=== PATIENT | male | born 1950 ===

== ENCOUNTER 2020-12-09 09:24 | Outpatient (CLI) | payer MEDICARE, OTHER, SELFPAY ==
[2020-12-09 10:11] LABS: Anion Gap 8 mmol/L (8-16); Blood Urea Nitrogen 18 mg/dL (9-20); Carbon Dioxide 35 mmol/L (22-30); Chloride 97 mmol/L (98-107); Estimated Glomerular Filt Rate 60; Glucose 188 mg/dL (75-110); Potassium 3.9 mmol/L (3.4-5.0); Sodium 140 mmol/L (137-145)
== END 2020-12-09 09:25 | disposition home or self-care (01) ==
PROVIDERS: PCP Internal Medicine Endocrinology, Diabetes & Metabolism; Visit Provider Internal Medicine Endocrinology, Diabetes & Metabolism
DX: E11.65 Type 2 diabetes mellitus with hyperglycemia (principal)
CPT/HCPCS: 36415; 80048; 82607

== ENCOUNTER 2022-05-26 07:38 | Emergency (ER) | payer MEDICARE, OTHER, SELFPAY ==
--- NOTE | ~2022-05-26 | CT_ITS ---
EXAMINATION: CT cervical spine wo con DATE: 05/26/2022 08:14 INDICATION: Altered level of consciousness TECHNIQUE: Computed tomography (CT) of the cervical spine was performed without intravenous contrast. Automated exposure control and iterative reconstruction technique were employed. Exam dose: 546.24 mGy-cm total exam DLP. COMPARISON: None FINDINGS: C1 and C2 are normally aligned and the odontoid process is intact. There is mild degenerative disease at C2-C3 and C3-4, moderately severe degenerative disease at C4-5 and severe degenerative disc disease at C5-6 and C6-7. There is slight anterolisthesis at C3-4, slight retrolisthesis at C4-5 and slight anterolisthesis at C7-T1. There is degenerative change at the apophyseal joints throughout the cervical spine is mild to modera te uncovertebral joints throughout the cervical spine No fracture or dislocation or locked facet or prevertebral soft tissue swelling of the cervical spine . There is mild anterior wedging of T1, T2 and T3 which may be due to mild old compression fractures. IMPRESSION: Cervical spondylosis; no cervical spine fracture is detected Probable chronic mild anterior wedge compression fractures of T1, T2 and T3 Reviewed, dictated and finalized at [facility]. Reviewed, dictated and finalized at [facility].
--- NOTE | ~2022-05-26 | XR_ITS ---
XR humerus LT DATE: 05/26/2022 08:23 INDICATION: Injury TECHNIQUE: AP and lateral views COMPARISON: None FINDINGS: Prominent arterial calcification of the upper arm and forearm. No fracture or dislocation, periosteal reaction or bone destruction. Normal alignment at the acromioc lavicular and glenohumeral and elbow joints. Left-sided pacemaker device. IMPRESSION: Prominent arterial calcification Reviewed, dictated and finalized at [facility].
--- NOTE | ~2022-05-26 | XR_ITS ---
XR hand LT min 3V DATE: 05/26/2022 08:23 INDICATION: Injury, pain TECHNIQUE: 3 views COMPARISON: None FINDINGS: Prominent arterial calcification, including some arterial calcification, suggesting diabete s. There is polyarticular osteoarthritis, including first carpometacarpal joint and multiple interphalan geal joints. No fracture, dislocation, periosteal reaction or bone destruction is detected. IMPRESSION: Polyarticular osteoarthritis Arterial calcification, including some metatarsal artery calcifications, suggesting diabetes Reviewed, dictated and finalized at [facility]. IMPRESSION: Polyarticular osteoarthritis Arterial calcification, including some metatarsal artery calcifications, sugges ting diabetes
--- NOTE | ~2022-05-26 | CT_ITS ---
EXAMINATION: CT brain wo con DATE: 05/26/2022 08:14 INDICATION: Altered level of consciousness. Fever. Hypotension. TECHNIQUE: Computed tomography (CT) of the head was performed without intravenous contrast. The mA wa s adjusted according to patient size. Iterative reconstruction technique was employed. Exam dose: 68 1.00 mGy-cm total exam DLP. COMPARISON: None FINDINGS: Prominent vertebral artery and carotid siphon and supraclinoid internal carotid artery calc ifications bilaterally. There is nonspecific diminished attenuation of the cerebral white matter, likely due to chronic small vessel ischemic changes. Moderate central and prominent cerebral cortical atrophy. This moderately prominent cerebellar atroph y. No intracranial mass lesion or hemorrhage or cerebrovascular accident. No midline shift or mass effec t effect. No subdural or epidural hematoma. Bilateral ocular lens replacements. The mastoid air cells and paranasal sinuses are normally aerated. No fracture or bone destruction of the cranial vault. IMPRESSION: Cerebral atherosclerosis and chronic small vessel ischemic changes of the cerebral white matter Cerebral and cerebellar atrophy No acute intracranial finding Reviewed, dictated and finalized at [facility]. Reviewed, dictated and finalized at [facility].
--- NOTE | ~2022-05-26 | CT_ITS ---
EXAMINATION: CT chest abdomen pelvis wo con DATE: 05/26/2022 08:14 INDICATION: Abdominal pain, fever, hypotension. Evaluate aorta for aneurysm. TECHNIQUE: Computed tomography (CT) of the chest, abdomen, and pelvis was performed without intraveno us contrast. Automated exposure control and iterative reconstruction technique were employed. Exam do se: 1507.93 mGy-cm total exam DLP. COMPARISON: 06/15/2013 two-view chest FINDINGS: CHEST CT: Status post sternotomy and aortic and mitral valve replacements. Extensive coronary artery calcification. Cardiomegaly. No pericardial effusion. Left-sided triple pacemaker device with leads in right atrium, right ventricle and coronary sinus. No pulmonary consolidation. There is extensive thoracic aortic calcification as well as great vessel calcification. No thoracic a ortic aneurysm. No hilar or mediastinal mass lesion or lymphadenopathy is detected. No pleural effusion. Mild bilateral gynecomastia. ABDOMEN/PELVIS CT: There is extensive portal venous gas within the liver, raising concern for mesenteric ischemia. There is extensive calcification of the celiac, superior mesenteric and inferior mesenteric arteries. Surg ical consultation is recommended. (Differential diagnosis for portal venous gas includes mesenteric i schemia, inflammatory bowel disease, perforated ulcer, infection, including diverticulitis, cholecyst itis, cholangitis, appendicitis.) Normal appendix. Mild diverticulosis of left and right colon without evidence of diverticulitis. No bowel obstruction or intraperitoneal free air. There is moderate thickening of the colon wall. No hepatic, splenic or pancreatic or adrenal space-occupying mass lesion is evident. Moderate distention of the gallbladder. Cannot exclude cholelithiasis. No apparent gallbladder wall t hickening or any pericholecystic fluid or fat stranding. No bile duct or pancreatic duct dilatation. No renal mass lesion or urinary tract calculus or hydroureteronephrosis. The urinary bladder is unrem arkable. There is extensive calcification of the abdominal aorta and iliac and femoral arteries but no abdomin al aortic aneurysm. Bilateral fat-containing inguinal hernias. Diffuse osteopenia. Dextroscoliosis of the thoracolumbar spine. There is prominent degenerative disc disease in lower cervical spine. There are numerous fracture def ormities of the thoracic and lumbar spine, including mild anterior wedge compression fracture from is a T2, T3, T8. There is patchy sclerotic and lucent change and mild loss of height and anterior wedgi ng of T11. Prominent burst fracture deformities of L1 and L3 and compression fracture deformities of L2 and L4. IMPRESSION: Extensive portal venous gas raising concern for bowel ischemia/mesenteric ischemia Extensive calcification of the celiac, superior mesenteric and inferior mesenteric arteries Diffuse moderate colon wall thickening Normal appendix Dr. Crespo telephoned the report on 05/26/2022 at 0915 hours to emergency room physician Dr. Becker. Reviewed, dictated and finalized at [facility]. Reviewed, dictated and finalized at [facility]. IMPRESSION: Extensive portal venous gas raising concern for bowel ischemia/mes enteric ischemia Extensive calcification of the celiac, superior mesenteric and inferior mesente mahendra arteries Diffuse moderate colon wall thickening Normal appendix Dr. Crespo telephoned the report on 05/26/2022 at 0915 hours to emergency room phys sarath Becker.
--- NOTE | ~2022-05-26 | XR_ITS ---
XR chest ET placement DATE: 05/26/2022 10:09 INDICATION: Intubation TECHNIQUE: Portable supine AP view on 05/26/2022 at 1004 hours COMPARISON: 06/15/2013 two-view chest FINDINGS: Status post sternotomy and cardiac valve replacement. Triple lead left-sided pacemaker casey ce. ET tube placement, distal tip 4.1 cm above jay in satisfactory position. No pulmonary infiltrate or consolidation or pleural effusion or pneumothorax is evident. Extensive po rtal venous gas is again noted. IMPRESSION: ET tube in satisfactory position Triple lead left-sided pacemaker device Status post sternotomy and cardiac valve replacement No active cardiac pulmonary disease or pneumothorax Extensive portal venous gas Reviewed, dictated and finalized at [facility]. Reviewed, dictated and finalized at [facility].
[2022-05-26 07:43] VITALS: BP 110/64; PULSE 99; RESP 36; TEMP 38.9; O2SAT 98
--- NOTE | 2022-05-26 07:47 | ECG_ITS ---
Measurements Intervals Zanoni Rate: 75 P: -67 IN: 165 QRS: 259 QRSD: 154 T: 73 QT: 408 QTc: 456 Interpretive Statements ELECTRONIC ATRIAL PACEMAKER ELECTRONIC VENTRICULAR PACEMAKER BASELINE ARTIFACT- I, II, III, AVR, AVL, AVF NO FURTHER INTERPRETATION IS POSSIBLE ATYPICAL ECG Electronically Signed On 05-26-2022 17:09:45 CDT by Kenney Vines D.O.
[2022-05-26 07:52] LABS: Glucose Point of Care 213 mg/dl (65-105)
--- NOTE | 2022-05-26 07:53 | ED.FEVER ---
HPI - Fever General Chief Complaint: Fever Stated Complaint: unresponsive, [id number] [id number] History of Present Illness HPI Narrative: last known well 10pm last night then found on floor skin tear left arm upper and hand pt weak aloc c/o cp but not on arrival only abd pain. pt unable to say what happened. h/o coumadin and also allergies to dye and tylenol not sure if sick prior. 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 Related Data Home Medications Medication Instructions Recorded Confirmed B-complex with vitamin C 1 cap PO DAILY 10/01/19 07/04/21 albuterol sulfate 90 mcg/actuation 1 inhalation inhalation Q4H 10/01/19 07/04/21 aerosol inhaler (ProAir HFA) alpha lipoic acid 600 mg capsule 600 mg PO BID 10/01/19 07/04/21 aspirin 81 mg tablet,delayed 81 mg PO DAILY 10/01/19 07/04/21 release (Adult Aspirin Regimen) carvedilol 6.25 mg tablet 6.25 mg PO BID 10/01/19 07/04/21 cholecalciferol (vitamin D3) 125 5,000 unit PO DAILY 10/01/19 07/04/21 mcg (5,000 unit) capsule dicyclomine 10 mg capsule 10 mg PO BID 10/01/19 07/04/21 docusate sodium 50 mg capsule 50 mg PO DAILY 10/01/19 07/04/21 (Colace Clear) ezetimibe 10 mg tablet (Zetia) 10 mg PO DAILY 10/01/19 07/04/21 fluticasone propionate 50 1 inhalation inhalation Q12H 10/01/19 07/04/21 mcg/actuation blister powder for inhalation (Flovent Diskus) furosemide 40 mg tablet 40 mg PO QAM 10/01/19 07/04/21 furosemide 80 mg tablet 80 mg PO QAM 10/01/19 07/04/21 isosorbide mononitrate 60 mg 60 mg PO DAILY 10/01/19 07/04/21 tablet,extended release 24 hr lactobacillus combination no.4 3 3,000 mmu cells PO DAILY 10/01/19 07/04/21 billion cell capsule (Probiotic) omega-3 fatty acids 1,000 mg 2,000 mg PO BID 10/01/19 07/04/21 capsule pitavastatin calcium 4 mg tablet 4 mg PO DAILY 10/01/19 07/04/21 (Livalo) spironolactone 25 mg tablet 25 mg PO DAILY 10/01/19 07/04/21 sucralfate 1 gram tablet 1 gm PO Q4H 10/01/19 07/04/21 tamsulosin 0.4 mg capsule 0.4 mg PO DAILY 10/01/19 07/04/21 warfarin 1 mg tablet 1 mg PO DAILY 10/01/19 07/04/21 warfarin 6 mg tablet 6 mg PO WEEKLY 10/01/19 07/04/21 esomeprazole magnesium 40 mg 80 mg PO DAILY 03/07/20 07/04/21 capsule,delayed release Allergies Allergy/AdvReac Type Severity Reaction Status Date / Time ticlopidine Allergy Mild Unknown Verified 05/26/22 09:03 acetaminophen Allergy Unknown Unknown Verified 05/26/22 09:03 clopidogrel Allergy Unknown Unknown Verified 05/26/22 09:03 codeine Allergy Unknown Unknown Verified 05/26/22 09:03 propoxyphene Allergy Unknown Unknown Verified 05/26/22 09:03 Contrast Media Allergy Unknown Unknown Uncoded 05/26/22 09:03 Review of Systems Constitutional: Comments: CONSTITUTIONAL: Denies fever, chills, or sweats. EYES: Denies visual changes, redness, or discharge. ENT: Denies rhinorrhea, congestion, sore throat, or otalgia. CARDIOVASCULAR: Denies chest pain, palpitations, or edema. RESPIRATORY: Denies cough or dyspnea. GASTROINTESTINAL: Denies abdominal pain, nausea, vomiting, or diarrhea. GENITOURINARY: Denies dysuria or hematuria. SKIN: Denies rash or itching. MUSCULOSKELETAL: Denies back pain, joint pain, or myalgia. NEUROLOGIC: Denies headache, numbness, or weakness. PSYCHIATRIC: Denies anxiety or depression. [facility] Past Medical History Medical History (Updated 05/26/22 @ 09:24 by Aline Becker MD) Basal cell carcinoma, face Carpal tunnel syndrome of right wrist Nasal deviation Presence of combination internal cardiac defibrillator (ICD) and pacemaker Type 2 diabetes mellitus Surgical History Surgical History (Reviewed 07/11/20 @ 08:53 by Anny Bonilla [facility]) H/O aortic valve replacement H/O heart artery stent History of cardiac cath History of cardiac radiofrequency ablation Family History Family History (Reviewed 07/11/20 @ 08:53 by Anny Bonilla, [facility]) Other Cerebrovascular accident Depression Diabetes mel
[2022-05-26 08:50] LABS: Appearance Urine Clear (Clear); Bilirubin Urine Negative (Negative); Color Urine Yellow (Yellow); Glucose Urine UA 2+ mg/dL (Negative); Ketones Urine Negative (Negative); Leukocyte Esterase Ur Negative LEU/UL (Negative); Nitrate Urine Negative (Negative); Protein Urine Negative (Negative); Specific Grav Ur <= 1.005 (1.001-1.035); Urobilinogen Urine 0.2 mg/dL (<2.0); pH Urine 5.5 (5.0-9.0)
[2022-05-26 08:55] VITALS: RESP 32; O2SAT 100
[2022-05-26 08:55] LABS: Lactic Acid Reflex 6.1 mmol/L (0.7-2.0)
[2022-05-26 09:01] LABS: RBC Urine 0-2 /hpf (0-2); WBC Urine 0-3 /hpf
[2022-05-26 09:02] LABS: Add Urine Microscopic? YES; Blood Urine Trace-Intact (Negative)
[2022-05-26 09:12] LABS: Basophils Percent Auto 0.3 % (0.2-1.2); Eosinophils Absolute Auto 0.1 K/mm3 (0-0.3); Eosinophils Percent Auto 0.5 % (0-4.4); Hematocrit 27.6 % (42.0-52.0); Hemoglobin 9.6 g/dL (14.0-18.0); Immature Platelet Fraction Pct 3.8 % (0.9-11.2); Lymphocytes Absolute Auto 1.03 K/mm3 (0.9-3.2); Lymphocytes Percent Auto 7.8 % (18.3-44.2); Mean Corpuscular HGB Conc 34.8 g/dl (32-36); Mean Corpuscular Hemoglobin 27.3 pg (26-34); Mean Corpuscular Volume 78.4 fl (80-100); Monocytes Percent Auto 0.3 % (2.6-8.5); Neutrophils Absolute Auto 11.6 K/mm3 (1.3-6.7); Neutrophils Percent Auto 88.1 % (45.5-73.1); Nucleated Red Blood Cells Absolute Auto 0.2 K/mm3 (0.0-0.012); Nucleated Red Blood Cells Perc 1.6 % (0.0-0.2); Platelet Count Result 92 k/mm3 (150-375); Red Blood Count 3.52 M/mm3 (4.6-6.20); Red Cell Distribution Width 30.2 % (11.5-14.5); White Blood Count 13.1 K/mm3 (4.5-10.0)
[2022-05-26] MEDS: SODIUM CHLORIDE 0.9% IV 1,000 ML 30 ML IV CONT (09:15)
[2022-05-26 09:28] LABS: INR 1.3
[2022-05-26 09:29] LABS: Platelet Estimate Decreased (Adequate)
[2022-05-26 09:30] LABS: Anisocytosis 2+ (NORMAL); Microcytosis 2+ (NORMAL); Stomatocytes 2+ (NORMAL)
[2022-05-26 09:31] LABS: Spherocytes 1+ (NORMAL)
[2022-05-26 09:38] LABS: Alveolar/Arterial O2 Gradient 128.1 mmHg; Base Excess ABG -10.7 mEq/l (+/-2.0); Fractional Inspired Oxygen 36 %; HCO3 ABG 15.4 mEq/l (22.0-26.0); Oxygen Content ABG 12.3 %vol (16.0-22.0); Oxygen Saturation ABG 95.5 % (95.0-100.0); Oxyhemoglobin 93.1 % THb (90.0-100.0); PCO2 ABG 35.2 mmHg (35.0-45.0); PO2 ABG 87.8 mmHg (80.0-100.0); PO2 FiO2 Ratio Arterial Blood 2.44 %; Total Hemoglobin 9.3 g/dL (12.0-18.0)
[2022-05-26 09:40] LABS: Device NASAL CANNULA; Modified Allen's Test Pass; Site Drawn RIGHT RADIAL
--- NOTE | 2022-05-26 09:48 | PC.NURSE ---
erp dr ebcker at bedside, pt oxygen saturation is remaining 60's. RN at bedside actively bagging patient. ERP Dr. Becker plans to intubate.
[2022-05-26 09:50] LABS: Influenza A QL RT-PCR Negative (Negative); Influenza B QL RT-PCR Negative (Negative); SARS-CoV-2 RNA PCR Negative
[2022-05-26 10:00] VITALS: BP 72/53; PULSE 75
[2022-05-26] MEDS: NOREPINEPHRINE 8 MG/D5W 250 ML 8 MG/250 ML BAG 9.38 MG IV CONT (10:00)
[2022-05-26] MEDS: SODIUM CHLORIDE 0.9% IV 1,000 ML 999 ML IV CONT (10:08)
--- NOTE | 2022-05-26 10:14 | PC.NURSE ---
09:47 change in pt condition, pt 02 sat 53% on 10L of O2, BP 95/75 P75, R25 decreased LOC, change in color more purple and lips blue 09:[address] at bed side 09:52 20mg of Amidate administered 09:54 pt intubated with 7.5 and 24 at the lips 10:00 Levophed 8mcg/250ml D5W started at 4mcg/min BP 87/53 10:01 BP 72/48 Levophed continues and 2nd bag of IV fluid started 10:02 BP 67/46 P75, R27 O2 sat 64%
[2022-05-26 10:21] LABS: Base Excess ABG -14.3 mEq/l (+/-2.0); HCO3 ABG 13.9 mEq/l (22.0-26.0); PCO2 ABG 42.3 mmHg (35.0-45.0); PO2 ABG 35.5 mmHg (80.0-100.0); pH ABG 7.134 (7.350-7.450)
[2022-05-26 10:22] LABS: Oxygen Saturation ABG 51.4 % (95.0-100.0); Total Hemoglobin 8.7 g/dL (12.0-18.0)
[2022-05-26 10:23] LABS: Device VENTILATOR; Fractional Inspired Oxygen 100 %; Modified Allen's Test Pass; Oxygen Content ABG 19.2 %vol (16.0-22.0); Site Drawn LEFT BRACHIAL
--- NOTE | 2022-05-26 11:02 | PC.NURSE ---
Senior Data Quality Analyst contacted @ 1112 - [email or web address] and will return our phone call elizabeth.
[2022-05-26 11:03] VITALS: PULSE 45; O2SAT 74
--- NOTE | 2022-05-26 11:03 | PC.NURSE ---
10:26 no pulse CPR started BP 88/54 O2sat 34%, 10:26 Epi administered CPR continues 10:28 no Pulse Epi in 10:30 Epi administered P 105 O2 sat 49% , BP 178/85 10:39 Epi drip started by air evac lifeteam BP 167/74 O2 43%, P 104, R23 10:45 NG tube inserted BP 73/54 O2 sat 67% P83 10:48 no pulse CPR started, BP 73/54 O2 sat 26% 10:51 Epi in 10:52 pulse checked by the dr with ultrasound, very minimal HR, no palpable pulse, CPR continues 10:54 Family here, POA here CPR stopped per family request. All medications discontinues per family/POA request.
--- NOTE | 2022-05-26 11:05 | PC.NURSE ---
MTS contacted will check registry and return our call elizabeth.
--- NOTE | 2022-05-26 11:08 | PC.NURSE ---
Jayden notified patient
--- NOTE | 2022-05-26 11:12 | PC.NURSE ---
[phone] Shan Jenkins
--- NOTE | 2022-05-26 11:15 | PC.NURSE ---
Johanne pulp bleacher ok to pull tubes return phone call when we have dr is agreeable to sign.
--- NOTE | 2022-05-26 11:19 | PC.NURSE ---
Family at bedside
[2022-05-26 11:53] LABS: Reflex Lactic Acid Yes or No Add Lactic
--- NOTE | 2022-05-26 11:55 | PC.NURSE ---
Zander with Dr. Shan Jenkins office returned phone call, and will sign the certificate. Renal Medicine Specialist Johanne updated and gave verbal to release to home at this time.
--- NOTE | 2022-05-26 11:57 | PC.NURSE ---
MTS returned a call, pt is not a candidate and will release to Home at this time.
--- NOTE | 2022-05-26 11:59 | PC.NURSE ---
[facility] notified, and will [place] us [place] [facility] [place]
[2022-05-28 11:20] LABS: Arterial Blood Gas Tidal Volume 500 ml; Arterial Blood Gas Vent Mode CMV; Arterial Blood Gas Ventilator rate 14 /MIN
== END 2022-05-26 12:37 | disposition expired ==
PROVIDERS: Emergency Provider Emergency Medicine
DX: A41.9 Sepsis, unspecified organism (principal); R65.21 Severe sepsis with septic shock; K55.059 Acute (reversible) ischemia of intestine, part and extent unspecified; R50.9 Fever, unspecified; R41.82 Altered mental status, unspecified; R11.10 Vomiting, unspecified; R10.9 Unspecified abdominal pain; Z20.822 Contact with and (suspected) exposure to COVID-19; E11.9 Type 2 diabetes mellitus without complications; Z95.810 Presence of automatic (implantable) cardiac defibrillator; Z85.828 Personal history of other malignant neoplasm of skin; Z95.5 Presence of coronary angioplasty implant and graft; Z95.2 Presence of prosthetic heart valve; Z79.01 Long term (current) use of anticoagulants; Z79.82 Long term (current) use of aspirin; Z79.4 Long term (current) use of insulin; Z79.84 Long term (current) use of oral hypoglycemic drugs; I67.2 Cerebral atherosclerosis; G31.9 Degenerative disease of nervous system, unspecified; M47.812 Spondylosis without myelopathy or radiculopathy, cervical region; M19.042 Primary osteoarthritis, left hand; M18.9 Osteoarthritis of first carpometacarpal joint, unspecified; W06.XXXA Fall from bed, initial encounter
CPT/HCPCS: 31500; 36415; 36600; 70450; 71250; 72125; 73060; 73130; 74176; 80053; 81001; 82805; 82948; 83605; 84484; 85025; 85055; 85610; 85730; 86140; 87040; 87077; 87186; 87502; 92950; 93005; 96365; 96367; 96368; 99285; A9270; C9803; J0131; J0171; J0692; J7030; J7060; U0003; U0005